=== PATIENT | male | born 1950 | race Caucasian/White ===

== ENCOUNTER 2023-03-12 20:33 | Emergency (ER) | payer OTHER ==
[2023-03-12 22:19] LABS: BLOOD UREA NITROGEN,BUN 20 mg/dL (7-18); BUN/CREATININE RATIO 11.8 (9-20); CALCIUM 9.4 mg/dL (8.6-10.2); CARBON DIOXIDE,CO2 29 mmol/L (21-32); CHLORIDE,CL 106 mmol/L (100-110); CREATININE 1.7 mg/dL (0.70-1.30); EST CRCL DRUG DOSING (CG) 30.22 mL/min; ESTIMATED GFR 42 mL/min (>60); GLUCOSE RANDOM 211 mg/dL (80-116); POTASSIUM,K 4.5 mmol/L (3.5-5.3); SODIUM,NA 142 mmol/L (135-145)
[2023-03-12 22:25] LABS: A/G RATIO 1.2; ALANINE AMINOTRANSFERASE,ALT 26 U/L (12-36); ALBUMIN 3.7 g/dL (3.2-4.6); ALKALINE PHOSPHATASE 89 IU/L (56-112); ASPARTATE AMNIOTRANSFERASE,AST 17 IU/L (5-25); BILIRUBIN TOTAL 0.8 mg/dL (0.1-1.3); PROTEIN TOTAL,TP 6.9 g/dL (6.0-8.0)
== END 2023-03-12 23:08 | disposition home or self-care (01) ==
LOC: FB.ED 20:33
DX: I12.9 Hypertensive chronic kidney disease with stage 1 through stage 4 chronic kidney disease, or unspecified chronic kidney disease (principal); E11.22 Type 2 diabetes mellitus with diabetic chronic kidney disease; N18.32 Chronic kidney disease, stage 3b; I48.91 Unspecified atrial fibrillation; Z88.0 Allergy status to penicillin; Z71.1 Person with feared health complaint in whom no diagnosis is made
CPT/HCPCS: 36415; 80053; 80162; 83735; 99283

== ENCOUNTER 2024-06-08 18:54 | Emergency (ER) | payer OTHER, MEDICARE ==
[2024-06-08 20:03] LABS: BLOOD UREA NITROGEN,BUN 36 mg/dL (7-18); BUN/CREATININE RATIO 17.1 (9-20); CALCIUM 9.6 mg/dL (8.6-10.2); CARBON DIOXIDE,CO2 25 mmol/L (21-32); CHLORIDE,CL 103 mmol/L (100-110); EST CRCL DRUG DOSING (CG) 26.03 mL/min; ESTIMATED GFR 32 mL/min (>60); GLUCOSE RANDOM 193 mg/dL (80-116); POTASSIUM,K 4.5 mmol/L (3.5-5.3); SODIUM,NA 139 mmol/L (135-145)
[2024-06-08 20:09] LABS: CREATININE 2.1 mg/dL (0.70-1.30)
== END 2024-06-08 20:47 | disposition home or self-care (01) ==
LOC: FB.ED 18:54
DX: I12.9 Hypertensive chronic kidney disease with stage 1 through stage 4 chronic kidney disease, or unspecified chronic kidney disease (principal); N18.30 Chronic kidney disease, stage 3 unspecified; E11.22 Type 2 diabetes mellitus with diabetic chronic kidney disease; Z96.649 Presence of unspecified artificial hip joint; Z88.0 Allergy status to penicillin
CPT/HCPCS: 36415; 80048; 93005; 99285